=== PATIENT | male | born 1960 | race Hispanic/Latino ===

== ENCOUNTER 2018-11-28 06:10 | Day surgery (SDC) | payer OTHER ==
[2018-11-28] MEDS ORDERED: ECOTRIN PO ONE (06:41)
[2018-11-28 07:00] LABS: Basophils % (Auto) 0.7 % (0.0-1.8); Eosinophils # (Auto) 0.1 K/mm3 (0.0-0.4); Eosinophils % (Auto) 1.2 % (0.0-4.3); Hematocrit 41.7 % (35.5-45.6); Hemoglobin 14.2 gm/dl (11.8-15.2); Lymphocytes # (Auto) 1.7 K/mm3 (1.2-5.4); Lymphocytes % (Auto) 29.8 % (13.4-35.0); Mean Corpuscular HGB Conc 34 % (32-34); Mean Corpuscular Volume 93 fl (84-94); Monocytes # (Auto) 0.7 K/mm3 (0.0-0.8); Monocytes % (Auto) 12.9 % (0.0-7.3); Platelet Count 260 K/mm3 (140-440); Red Cell Distribution Width 13.4 % (13.2-15.2)
[2018-11-28] MEDS ORDERED: NACL 0.9% 500 ML 500 ML IV SCH (07:00)
[2018-11-28 07:08] LABS: INR 0.91 (0.87-1.13)
[2018-11-28 07:17] LABS: BUN/Creatinine Ratio 22; Blood Urea Nitrogen 24 mg/dL (9-20); Calcium 9.3 mg/dL (8.4-10.2); Hemolysis Index 12
[2018-11-28] MEDS ORDERED: HEPARIN/NS 5000 UNIT/500ML(CATH LAB) 1,000 ML IR ONE (08:14)
[2018-11-28] MEDS ORDERED: HEPARIN 10,000 UNITS/10 ML ONE (08:14)
[2018-11-28] MEDS ORDERED: CALAN ONE (08:14)
[2018-11-28] MEDS ORDERED: NITROGLYCERIN SYRINGE 3 ML ONE (08:14)
[2018-11-28] MEDS ORDERED: XYLOCAINE 2% INFILTRATI ONE (08:14)
[2018-11-28] MEDS ORDERED: SUBLIMAZE ONE (08:15)
[2018-11-28] MEDS: VERSED ONE ×2 (08:38→08:41)
--- NOTE | 2018-11-28 09:32 | Cardiac Catherization Report ---
INDICATION FOR PROCEDURE: The patient is a pleasant 57-year-old gentleman with multiple risk factors including family history, recurrent chest pain despite unremarkable stress test referred for left heart catheterization. Risks, benefits, and potential alternatives were explained at length prior to obtaining informed consent. PROCEDURE IN DETAIL: The patient was brought to the catheterization lab in a postabsorptive state and prepped and draped in sterile fashion. Mayo's test in the right hand was normal. A 2 mL of 2% lidocaine was used to anesthetize the right wrist. A standard 6-Japanese hydrophilic sheath was used to cannulate the right radial artery via modified Seldinger technique. All exchanges were performed to exchange a J-tip guidewire. JL3.5 catheter was used to engage the left main. No dampening or ventricularization. Cineangiography performed in all projections. JR4 catheter was used to cross the aortic valve under fluoroscopic guidance. Left ventriculography performed at 30 FOURNIER and 30 NICAR[place]UAN projections via hand injections and catheter flushed. Manual pullback performed with continuous pressure monitoring. Catheter used to engage the right coronary. No dampening or ventricularization. Cineangiography performed in all projections. At this point, due to recurrent chest pain, we performed a root aortogram with a pigtail catheter in the NICARAGUAN projection with a power injector. Catheter removed from the body of wire, sheath removed, manual pressure used to achieve hemostasis. I directly supervised the administration of moderate sedation from 8:30 to 8:55 a.m. with fentanyl and Versed. DATA: The patient remained in normal sinus rhythm throughout the procedure. Aortic pressure is 110/70, LV pressure is 110, LVP of 12 mmHg. Left ventriculography reveals normal systolic performance with estimated ejection fraction of 55-60%. No evidence of aortic stenosis. CORONARY ANATOMY: This is a codominant system. Right coronary is a large vessel, courses AV groove, distally bifurcates in the posterior descending and posterolateral branches. No discrete stenosis identified. Left main without significant disease, bifurcates the left anterior descending and left circumflex. Left circumflex is a moderate sized vessel, courses AV groove. No significant disease. LAD is a moderate sized vessel, courses anterior intergroove, wraps around the apex, no significant disease. Root aortogram reveals normal contour and normal gauge. No evidence of aortic dissection. No evidence of penetrating aortic ulcer. Normal great vessel anatomy. CONCLUSIONS: 1. No angiographic evidence of significant epicardial coronary disease in this codominant system. 2. Normal left ventricular systolic performance. 3. No evidence of aortic stenosis. 4. Normal root aortography without evidence of penetrating aortic ulcer dissection or aortic insufficiency. The patient tolerated the procedure well. There were no complications. Standard radial care. Results of the procedure explained at length to the patient and family. All questions and concerns were addressed. Follow up with me in the office. JOB# [id number] SBM/NTS
--- NOTE | 2018-11-28 10:52 | Short Stay Summary ---
Short Stay Documentation Date of service: 11/28/18 - History H&P: obtained from office - Allergies and Medications Current Medications: Allergies No Known Allergies Allergy (Unverified 11/28/18 06:11) Home Medications Medication Instructions Recorded Confirmed Last Taken Type Aspirin [Lo-Dose Aspirin EC] 81 mg PO DAILY 11/28/18 11/28/18 11/27/18 History Active Medications Sodium Chloride (Nacl 0.9% 500 Ml) 500 mls @ 50 mls/hr IV DIRECT GHASSAN Stop: 11/28/18 16:59 Last Admin: 11/28/18 07:29 Dose: 50 mls/hr Documented by: - Brief post op/procedure progress note Date of procedure: 11/28/18 Pre-op diagnosis: chest pain Post-op diagnosis: same Procedure: C - see dictated cath report Anesthesia: local Estimated blood loss: none Condition: stable - Disposition Condition at discharge: Good Disposition: [id number] TO HOME OR SELFCARE - Discharge Diagnoses (1) Chest pain Status: Chronic Short Stay Discharge Plan Activity: advance as tolerated Diet: regular Wound: open to air, keep clean and dry, per your surgeon's advice Follow up with: KIMBERLY LANIER MD [Primary Care Provider] - 7 Days DAMIEN PERALTA MD [Staff Physician] - 7 Days Forms: CardCath PCI D/C Instructions
[2018-11-28 13:46] VITALS: BP 122/65
== END 2018-11-28 13:20 | disposition home or self-care (01) ==
LOC: CATHLABREC 06:10
PROVIDERS: ATTEND Internal Medicine
DX: R07.89 Other chest pain (principal); R94.39 Abnormal result of other cardiovascular function study; Z79.82 Long term (current) use of aspirin; Z98.890 Other specified postprocedural states
CPT/HCPCS: 36415; 80048; 85025; 85610; 85730; 93005; 93010; 93458; 93567; 99156; 99157; C1894; J1644; J2250; J3010; J7040; Q9967